=== PATIENT | female | born 1955 | race Caucasian/White ===

== ENCOUNTER 2022-05-06 14:02 | Emergency (ER) | payer OTHER ==
[~2022-05-06] VITALS: Ht 157.5 cm; Wt 90.7 kg
[~2022-05-06 14:02] MED LIST: CALC-823 PO; ESTR1PAT76 TD; FERR240T5 PO; LEVO112T5 PO; MAGN400T10 PO; METO25TA3 PO; MULT PO; PRO40 PO
[2022-05-06 14:08] VITALS: BP_SYST 135
--- NOTE | 2022-05-06 14:36 | NUR ---
Patient to ER bed 7 to gown for evaluation. Side rails up. Report given to Elva RIVERO.
--- NOTE | 2022-05-06 14:45 | NUR ---
Patient presents to ER for c/o right ankle pain s/p recent ankle sx to remove hardware on 03/13/2022. Patient states "I think I moved too quickly and I injuried my foot." Pain 6/10 at this time. Nad noted at this time. Will continue to monitor.
--- NOTE | 2022-05-06 15:12 | NUR ---
ER MD Guerra at bedside.
--- NOTE | 2022-05-06 15:19 | NUR ---
Patient resting comfortably with side rails raised. Patient's at bedside. Nad noted at this time. Will continue to monitor.
--- NOTE | 2022-05-06 15:23 | NUR ---
Patient taken for xrays of right ankle accompained by radiology.
[2022-05-06] MEDS ORDERED: ACETAMINOPHEN 500 MG TABLET PO ONE (15:30)
--- NOTE | 2022-05-06 15:40 | NUR ---
Patient back from xrays accompanied by radiology.
[2022-05-06] MEDS ORDERED: NAPR-688 PO (16:02)
--- NOTE | 2022-05-06 16:40 | NUR ---
Patient given written and verbal discharge instructions and verbalizes understanding. ER MD discussed with patient the results and treatment provided. Patient in stable condition. ID arm band removed. Rx of Naproxen given. Patient educated on pain management and to follow up with PMD. Pain Scale 2/10. Opportunity for questions provided and answered. Medication side effect fact sheet provided. Patient A/Ox4, VSS, resp even and unlabored. Nad noted at this time.
[2022-05-06 16:42] VITALS: BP_SYST 148
== END 2022-05-06 16:42 | disposition home or self-care (01) ==
LOC: SED 14:02
DX: M25.561 Pain in right knee (principal); R09.89 Other specified symptoms and signs involving the circulatory and respiratory systems; I11.0 Hypertensive heart disease with heart failure; I50.9 Heart failure, unspecified; Z79.899 Other long term (current) drug therapy
CPT/HCPCS: 73560-TC; 99283

== ENCOUNTER 2023-05-14 15:48 | Emergency (ER) | payer OTHER ==
[~2023-05-14] VITALS: Ht 157.5 cm; Wt 54.4 kg
[~2023-05-14 15:48] MED LIST changes: +NAPR-688 PO
[2023-05-14 16:09] VITALS: BP_SYST 137; PULSE 73; RESP 18; TEMP 97.8; O2SAT 96
[2023-05-14] MEDS ORDERED: MAG HYDROX/AL HYDROX/SIMETH 30 ML, DICYCLOMINE HCL 20 MG, LIDOCAINE VISCOUS 2% 15ML (PO... PO ONE ×3 (17:30)
[2023-05-14] MEDS ORDERED: ONDANSETRON 4 MG ODT TAB PO ONE (17:30)
[2023-05-14] MEDS ORDERED: PANTOPRAZOLE SODIUM 40 MG TAB PO ONE (17:30)
[2023-05-14 17:45] LABS: BASOPHILS # (AUTO) 0.1 K/uL (0.0-0.2); BASOPHILS % (AUTO) 1.1 % (0.0-2.0); EOSINOPHILS # (AUTO) 0.2 K/uL (0.0-0.4); EOSINOPHILS % (AUTO) 3.1 % (0.0-4.0); HEMATOCRIT 39.1 % (36-48); HEMOGLOBIN 12.6 g/dL (12.0-16.0); LYMPHOCYTES % (AUTO) 27.3 % (20.5-51.5); MEAN CORPUSCULAR HEMOGLOBIN 28 pg (27-31); MEAN CORPUSCULAR HGB CONC 32 % (32-36); MEAN CORPUSCULAR VOLUME 85 fL (79.0-98.0); MONOCYTES # (AUTO) 0.9 K/uL (0.0-1.0); MONOCYTES % (AUTO) 11.9 % (1.7-9.3); NEUTROPHILS # (AUTO) 4.2 K/uL (1.8-7.7); NEUTROPHILS % (AUTO) 56.6 % (40.0-70.0); PLATELET COUNT (AUTO) 282 K/uL (130-430); WHITE BLOOD COUNT (AUTO) 7.4 K/uL (4.8-10.8)
[2023-05-14] MEDS ORDERED: DICYCLOMINE HCL 10 MG/5 ML SOLUTION ONE (17:46)
[2023-05-14] MEDS ORDERED: MAG-AL HYDROX/SIMETH 30 ML UDC ONE (17:46)
[2023-05-14 17:55] LABS: PROTHROMBIN TIME 10.6 SECS (9.5-12.5)
[2023-05-14 17:57] LABS: ALANINE AMINOTRANSFERASE 18 U/L (12-78); ALBUMIN 3.3 g/dL (3.4-4.8); ANION GAP 10 (5-15); ASPARTATE AMINOTRANSFERASE 33 U/L (10-37); CALCIUM 9.4 mg/dL (8.4-11.0); CHLORIDE 101 mmol/L (98-107); CREATININE 1.41 mg/dL (0.55-1.30); GFR AFRICAN AMERICAN 48 mL/min (>90); GLUCOSE 103 mg/dL (74-106); TOTAL BILIRUBIN 0.5 mg/dL (0.0-1.0); UREA NITROGEN, BLOOD 16 mg/dL (8-21)
[2023-05-14 18:23] LABS: ACETONE, SERUM NEGATIVE (NEGATIVE)
[2023-05-14 18:26] LABS: AMYLASE 34 U/L (0-100); LACTATE DEHYDROGENASE 247 U/L (81-234); LIPASE 47 U/L (73-393)
[2023-05-14] MEDS ORDERED: ONDA-8 TL (19:34)
[2023-05-14] MEDS ORDERED: CALC355O19 PO (19:34)
[2023-05-14 20:24] VITALS: BP_SYST 128; PULSE 88; RESP 16; TEMP 98.3; O2SAT 98
== END 2023-05-14 20:24 | disposition home or self-care (01) ==
LOC: SED 15:48
DX: K29.70 Gastritis, unspecified, without bleeding (principal); T50.905A Adverse effect of unspecified drugs, medicaments and biological substances, initial encounter; R11.10 Vomiting, unspecified; R10.13 Epigastric pain; I10 Essential (primary) hypertension; Z79.899 Other long term (current) drug therapy; Y92.89 Other specified places as the place of occurrence of the external cause
CPT/HCPCS: 99284; 74176; 80053; 82009; 82150; 83615; 83690; 85025; 85610; 85730; 84484; 36415; 76376; 83605; 82397; Q0162